=== PATIENT | male | born 1990 | race Two or more races ===

== ENCOUNTER 2020-08-21 10:05 | Emergency (ER) | payer MEDICAID ==
[~2020-08-21] VITALS: Ht 177.8 cm; Wt 75.0 kg
[2020-08-21 11:21] VITALS: BP 138/76
== END 2020-08-21 11:23 | disposition home or self-care (01) ==
LOC: EMS 10:08
DX: K64.4 Residual hemorrhoidal skin tags (principal)
CPT/HCPCS: 99283; Z7502